=== PATIENT | male | born 1980 | race Caucasian/White ===

== ENCOUNTER 2019-07-30 18:35 | Emergency (ER) | payer MEDICARE, MEDICAID ==
[~2019-07-30] VITALS: Ht 185.4 cm; Wt 88.5 kg
[2019-07-30 19:02] VITALS: BP 155/88
--- NOTE | 2019-07-30 19:02 | NUR ---
ARRIVAL PATIENT PRESENTS WITH COMPLAINTS OF LUQ ABDOMINAL PAIN THAT RADIATES TO BACK FOR THE PAST 8 DAYS. STATES THAT HE HAS BEEN TAKING TYLENOL #4 FOR PAIN AND IT IS NOT HELPING. PATIENT ALSO REPORTS N/V, CHILLS. DENIES URINARY SYMPTOMS. VSS. MARS MD NOTIFIED.
[2019-07-30] MEDS ORDERED: PHENERGAN 12.5 MG in NS 25ML 25 ML IV STA ×2 (19:28→20:24)
[2019-07-30] MEDS ORDERED: MORPHINE SULFATE IV STA ×2 (19:28→21:57)
[2019-07-30] MEDS ORDERED: NS 1000ML 1,000 ML IV ONE (19:30)
--- NOTE | 2019-07-30 19:34 | ER.PDOC ---
General Chief Complaint: Abdomen Pain Stated Complaint: L UPPER SIDE & BACK PAIN Time seen by MD: 19:15 Source: patient Exam Limitations: no limitations History of Present Illness Initial Comments Pt c/o LUQ abd pain x 4 days. + N/V. Radiates to L flank and back. No previous history. Timing/Duration: other Severity/Quality: severe Radiation: LUQ, flank, back Associated Symptoms: nausea/vomiting Exacerbated by: nothing Relieved By: nothing Allergies: Coded Allergies: ibuprofen (Unverified Allergy, Unknown, SEVERE ABD CRAMPS, DIARRHEA, ANAL LEAKAGE, 06/13/18) risperidone (Unverified Allergy, Unknown, BLURRED VISION, 06/13/18) Vital Signs First Vital Signs Date Time Temp Pulse Resp B/P (MAP) Pulse Ox O2 Delivery O2 Flow Rate FiO2 07/30/19 19:02 97.0 97 18 98 Room Air 07/30/19 19:02 155/88 (110) Last Vital Signs Date Time Temp Pulse Resp B/P (MAP) Pulse Ox O2 Delivery O2 Flow Rate FiO2 07/30/19 19:02 97.0 97 18 07/30/19 19:02 155/88 (110) 98 Room Air Past Medical History Medical History: asthma, hypertension Surgical History: other LMP (females 10-50): N/A Not applicalbe Social History Smoking: greater than 1 pack/day Alcohol Use: none Drug Use: none Constitutional: no symptoms reported EENTM: no symptoms reported Respiratory: no symptoms reported Cardiovascular: no symptoms reported Gastrointestinal: abdominal pain, nausea, vomiting Genitourinary: no symptoms reported Musculoskeletal: no symptoms reported Skin: no symptoms reported Psychiatric/Neurological: no symptoms reported Endocrine: no symptoms reported Physical Exam General Appearance: WD/WN, Moderate Distress HEENT: PERRL/EOMI, Normal ENT Inspection, TMs Normal, Pharynx Normal Neck: Non-Tender, Full Range of Motion, Supple, Normal Inspection Respiratory: chest non-tender, lungs clear, normal breath sounds, no respiratory distress, no accessory muscle use Cardiovascular: Normal Peripheral Pulses, Regular Rate, Rhythm, No Edema, No Gallop, No JVD, No Murmur Gastrointestinal: Normal Bowel Sounds, Non Tender, Soft, Guarding, Tenderness (LUQ) Back: Normal Inspection, No CVA Tenderness, No Vertebral Tenderness Extremities: Normal Range of Motion, Non-Tender, Normal Inspection, No Pedal Edema, No Calf Tenderness, Normal Capillary Refill, Pelvis Stable Neurologic/Psychiatric: retail leader II-XII NML as Tested, No Motor/Sensory Deficits, Alert, Normal Mood/Affect, Oriented x 3 Skin: Normal Color, Warm/Dry Lymphatic: No Adenopathy Results/Orders Results/Orders Orders - NEWTON CREWS MD Cbc With Auto Diff (07/30/19 19:28) Comprehensive Metabolic Panel (07/30/19:28) Amylase (07/30/19:28) Lipase (07/30/19:28) Helicobacter Pylori (07/30/19:28) Saline Lock (07/30/19:28) Morphine Sulfate (Morphine Sulfate) (07/30/19 19:28) Promethazine Hcl (Phenergan) (07/30/19 19:28) 0.9 % Sodium Chloride (Ns 1000ml) (07/30/19 19:30) Promethazine Hcl (Phenergan) (07/30/19 19:53) 0.9 % Sodium Chloride (Ns 100ml) (07/30/19 19:54) Promethazine Hcl (Phenergan) (07/30/19 20:24) Promethazine Hcl (Phenergan) (07/30/19 20:30) 0.9 % Sodium Chloride (Ns 100ml) (07/30/19 20:30) Mag Hydrox/Aluminum Hyd/Simeth (Mylanta) (07/30/19 21:29) Lidocaine Hcl (Lidocaine Viscous) (07/30/19 21:29) Xr Chest 1v (07/30/19 21:57) Morphine Sulfate (Morphine Sulfate) (07/30/19 21:57) Sucralfate (Carafate) (07/30/19 21:57) Vital Signs Date Time Temp Pulse Resp B/P (MAP) Pulse Ox O2 Delivery O2 Flow Rate FiO2 07/30/19 19:02 97.0 97 18 07/30/19 19:02 97.0 97 18 155/88 (110) 98 Room Air 07/30/19 19:02 97.0 97 18 98 Room Air Administered Medications Medications (Trade) Dose Ordered Sig/Jabier Route PRN Reason Start Time Stop Time Status Last Admin Dose Admin Lidocaine HCl (Lidocaine Viscous) 10 ml STAT STAT MM 07/30/19 21:29 07/30/19 21:30 UNV 07/30/19 21:43 10 ML Morphine Sulfate (Morphine Sulfate) 4 mg OT STAT IV 07/30/19 19:28 07/30/19 19:29 UNV 07/30/19 19:45 4 MG Morphine Sulfate (Morphine Sulfate) 4 mg OT STAT IV 07/30/19 21:57 07/30/19 21:58 UNV 07/30/19 22:25 4 MG Sodium Chloride 1,000 ml @ 0 mls/hr Q0M ONCE IV 07/30/19 19:30 07/30/19 19:31 UNV 07/30/19 19:45 1,000 MLS/HR Sucralfate (Carafate) 1 gm STAT STAT PO 07/30/19 21:57 07/30/19 21:58 UNV 07/30/19 22:41 1 GM Laboratory Tests Test 07/30/19 19:50 White Blood Count 9.5 10^3/uL (4.5-11.0) Red Blood Count 5.03 10^6/uL (4.50-5.90) Hemoglobin 15.5 g/dL (13.9-16.3) Hematocrit 45.4 % (37.0-53.0) Mean Corpuscular Volume 90.3 fL (78-100) Mean Corpuscular Hemoglobin 30.8 pg (26-34) Mean Corpuscular Hemoglobin Concent 34.1 g/dL (33-37) Red Cell Distribution Width 13.0 % (11.5-14.5) Platelet Count 336 10^3/uL (150-400) Mean Platelet Volume 9.6 fL (7.8-11.0) Neutrophils (%) (Auto) 53.9 % (41.0-85.0) Lymphocytes (%) (Auto) 35.2 % (24.0-44.0) Monocytes (%) (Auto) 8.3 % (5.0-12.0) Neutrophils # (Auto) 5.1 10^3/uL (1.8-7.7) Lymphocytes # (Auto) 3.4 10^3/uL (1.0-4.8) Monocytes # (Auto) 0.8 10^3/uL (0.3-0.8) Absolute Immature Granulocyte (auto 0.02 10^3 u/L (0-2) Immature Granulocytes % 0.20 % (0.00-0.50) Eosinophils % 2.0 % (0.0-5.0) Basophils % 0.4 % (0.0-0.2) H Basophils # 0.0 10^3/uL (0.0-0.1) Eosinophil Count 0.2 10^3/uL (0.0-0.2) Sodium Level 144 mmol/L (132-145) Potassium Level 3.5 mmol/L (3.6-5.2) L Chloride Level 106.0 mmol/L (96-109) Carbon Dioxide Level 27.0 mmol/L (20.0-32) Anion Gap 14.5 Blood Urea Nitrogen 13 mg/dL (7-18) Creatinine 1.02 mg/dL (0.59-1.40) Estimated GFR () 99.4 (>/=60) BUN/Creatinine Ratio 12.0 Glucose Level 98 mg/dL (70-110) Calcium Level 8.8 mg/dL (8.4-10.5) Total Bilirubin 0.2 mg/dL (0.2-1.0) Aspartate Amino Transferase (AST) 18 U/L (0-35) Alanine Aminotransferase (ALT) 27 U/L (12-78) Alkaline Phosphatase 113 U/L (50-136) Total Protein 6.6 g/dL (6.4-8.2) Albumin 3.7 g/dL (3.4-5.0) Globulin 2.9 Amylase Level 27 U/L (25-115) Lipase 80 U/L (114-286) L Helicobacter pylori Screen POSITIVE (NEGATIVE) Course Sepsis Screening Results: Posi: POSITIVE SEPSIS RISK Duration or Total Time Spent w: 20 M Vitals & review Data Vital Sign - Last 24 Hours 07/30/19 07/30/19 07/30/19 19:02 19:02 19:02 Temp 97.0 97.0 97.0 Pulse 97 97 97 Resp 18 18 18 B/P (MAP) 155/88 (110) Pulse Ox 98 98 O2 Delivery Room Air Room Air Laboratory Tests Test 07/30/19 19:50 White Blood Count 9.5 10^3/uL Red Blood Count 5.03 10^6/uL Hemoglobin 15.5 g/dL Hematocrit 45.4 % Mean Corpuscular Volume 90.3 fL Mean Corpuscular Hemoglobin 30.8 pg Mean Corpuscular Hemoglobin Concent 34.1 g/dL Red Cell Distribution Width 13.0 % Platelet Count 336 10^3/uL Mean Platelet Volume 9.6 fL Neutrophils (%) (Auto) 53.9 % Lymphocytes (%) (Auto) 35.2 % Monocytes (%) (Auto) 8.3 % Neutrophils # (Auto) 5.1 10^3/uL Lymphocytes # (Auto) 3.4 10^3/uL Monocytes # (Auto) 0.8 10^3/uL Absolute Immature Granulocyte (auto 0.02 10^3 u/L Immature Granulocytes % 0.20 % Eosinophils % 2.0 % Basophils % 0.4 % Basophils # 0.0 10^3/uL Eosinophil Count 0.2 10^3/uL Sodium Level 144 mmol/L Potassium Level 3.5 mmol/L Chloride Level 106.0 mmol/L Carbon Dioxide Level 27.0 mmol/L Anion Gap 14.5 Blood Urea Nitrogen 13 mg/dL Creatinine 1.02 mg/dL Estimated GFR () 99.4 BUN/Creatinine Ratio 12.0 Glucose Level 98 mg/dL Calcium Level 8.8 mg/dL Total Bilirubin 0.2 mg/dL Aspartate Amino Transf (AST/SGOT) 18 U/L Alanine Aminotransferase (ALT/SGPT) 27 U/L Alkaline Phosphatase 113 U/L Total Protein 6.6 g/dL Albumin 3.7 g/dL Globulin 2.9 Amylase Level 27 U/L Lipase 80 U/L Helicobacter pylori Screen POSITIVE Current Medications Medications (Trade) Dose Ordered Sig/Jabier PRN Reason Start Time Stop Time Status Last Admin Lidocaine HCl (Lidocaine Viscous) 10 ml STAT STAT 07/30/19 21:29 07/30/19 21:30 UNV 07/30/19 21:43 Morphine Sulfate (Morphine Sulfate) 4 mg OT STAT 07/30/19 19:28 07/30/19 19:29 UNV 07/30/19 19:45 Morphine Sulfate (Morphine Sulfate) 4 mg OT STAT 07/30/19 21:57 07/30/19 21:58 UNV 07/30/19 22:25 Promethazine HCl 12.5 mg/Sodium Chloride 25.5 ml @ 150 mls/hr OT STAT 07/30/19 19:28 07/30/19 19:38 UNV Promethazine HCl 12.5 mg/Sodium Chloride 25.5 ml @ 150 mls/hr OT STAT 07/30/19 20:24 07/30/19 20:34 UNV Sucralfate (Carafate) 1 gm STAT STAT 07/30/19 21:57 07/30/19 21:58 UNV 07/30/19 22:41 Sepsis Infection Criteria Pres: None O2 Sat by Pulse Oximetry: 98 Departure Time of Disposition: 22:53 Disposition: 01 HOME, SELF-CARE Impression: Primary Impression: Peptic ulcer Condition: Stable Referrals: STEPHANIE ZURITA [facility] OF MAINTENANCE (PCP) PRIMARY CARE PROVIDER Additional Instructions: Rx Prevpak, Phenergan. Follow up with PCP for referral to hospitality ambassador. Duration or Time Spent with Pa: 20 NEWTON CREWS MD Jul 30, 2019 19:34
[2019-07-30] MEDS ORDERED: NS 1000ML 1,000 ML ONE (19:35)
[2019-07-30] MEDS ORDERED: MORPHINE SULFATE ONE ×2 (19:35→22:20)
[2019-07-30 19:52] LABS: BASOPHIL % 0.4 % (0.0-0.2); EOSINOPHIL # 0.2 10^3/uL (0.0-0.2); HEMOGLOBIN 15.5 g/dL (13.9-16.3); LYMPHOCYTES # 3.4 10^3/uL (1.0-4.8); LYMPHOCYTES % 35.2 % (24.0-44.0); MEAN CELL HGB 30.8 pg (26-34); MEAN CELL HGB CONCENTRATION 34.1 g/dL (33-37); MEAN CORP VOLUME 90.3 fL (78-100); MEAN PLATELET VOLUME 9.6 fL (7.8-11.0); MONOCYTES # 0.8 10^3/uL (0.3-0.8); MONOCYTES % 8.3 % (5.0-12.0); NEUTROPHIL # 5.1 10^3/uL (1.8-7.7); NEUTROPHILS % 53.9 % (41.0-85.0); WHITE BLOOD CELL 9.5 10^3/uL (4.5-11.0)
[2019-07-30] MEDS ORDERED: PHENERGAN ONE ×2 (19:53→20:30)
[2019-07-30] MEDS ORDERED: NS 100ML 100 ML IV ONE ×2 (19:54→20:30)
--- NOTE | 2019-07-30 19:56 | NUR ---
PHENERGAN PHENERGAN 12.5MG MIXED WITH 100ML NS AND ADMINISTERED IV PER ORDER OF MD MARS. MEDICATION WILL NOT CROSS OVER IN DEC.
[2019-07-30 20:05] VITALS: BP 128/76
[2019-07-30 20:06] LABS: CALCIUM 8.8 mg/dL (8.4-10.5)
--- NOTE | 2019-07-30 20:35 | NUR ---
PHENERGAN PHENERGAN 12.5MG MIXED WITH 100ML NS AND ADMINISTERED IV PER ORDER OF MD MARS. MEDICATION WILL NOT CROSS OVER IN DEC.
[2019-07-30 21:05] VITALS: BP 125/95
[2019-07-30] MEDS ORDERED: LIDOCAINE VISCOUS MM STA (21:29)
[2019-07-30] MEDS ORDERED: MYLANTA PO STA (21:29)
[2019-07-30] MEDS ORDERED: LIDOCAINE VISCOUS ONE (21:38)
[2019-07-30] MEDS ORDERED: MYLANTA ONE (21:39)
[2019-07-30] MEDS ORDERED: CARAFATE PO STA (21:57)
[2019-07-30 22:05] VITALS: BP 125/78
--- NOTE | 2019-07-30 22:43 | DIREP ---
PROCEDURE:CHEST 1 VIEW COMPARISON:[facility], CR, XRAY CHEST SINGLE VW, 06/18/2019, 10:26 AM. INDICATIONS:Abd/chest pain, eval for free air FINDINGS: LUNGS/PLEURA:No significant pulmonary parenchymal abnormalities. No effusions. The lungs are clear. Assuming that the chest x-ray was performed upright, there is no evidence for free air below the diaphragm. There is mild prominence of the interstitium in the lungs, but unchanged since the last study. No pneumonia, heart failure or effusions are seen. VASCULATURE:Normal. Unremarkable pulmonary vasculature. CARDIAC:Normal. No cardiac silhouette abnormality or cardiomegaly. MEDIASTINUM:Normal. No visible mass or adenopathy. BONES:Normal. No fracture or visible bony lesion. Bifid spinous process of T1. OTHER:Negative. CONCLUSION:Assuming that the chest x-ray was performed upright, there is no evidence for free air below the diaphragm. A follow-up supine and upright abdomen view is still recommended. No active disease in the lungs. Dictated by: Manuel Leos MD on 07/30/2019 at 10:40 PM
[2019-07-30 22:57] VITALS: BP 121/75
--- NOTE | 2019-07-30 23:03 | NUR ---
IV DC'D TIP INTACT, NO BLEEDING
--- NOTE | 2019-07-30 23:04 | NUR ---
IV sites to right AC and right forearm DC'd. Pressure applied.
[2019-07-31] MEDS ORDERED: CARAFATE ONE (08:33)
== END 2019-07-30 23:06 | disposition home or self-care (01) ==
LOC: ER 18:35
DX: K27.9 Peptic ulcer, site unspecified, unspecified as acute or chronic, without hemorrhage or perforation (principal); R11.2 Nausea with vomiting, unspecified; F17.210 Nicotine dependence, cigarettes, uncomplicated; I10 Essential (primary) hypertension; J45.909 Unspecified asthma, uncomplicated; Z79.899 Other long term (current) drug therapy; Z88.6 Allergy status to analgesic agent; Z88.8 Allergy status to other drugs, medicaments and biological substances
CPT/HCPCS: 36415; 71045; 80053; 82150; 83690; 85025; 86677; 96361; 96374; 96376; 99285; J2270 ×2; J2550 ×2; J3490; J7030; J7050 ×2

== ENCOUNTER 2019-09-05 10:14 | Emergency (ER) | payer MEDICARE ==
[~2019-09-05] VITALS: Ht 182.9 cm; Wt 93.4 kg
[2019-09-05 10:29] VITALS: BP 138/89
[2019-09-05] MEDS ORDERED: MYLANTA PO STA (11:09)
[2019-09-05] MEDS ORDERED: LIDOCAINE VISCOUS MM STA (11:09)
[2019-09-05] MEDS ORDERED: LIDOCAINE VISCOUS ONE (11:14)
[2019-09-05] MEDS ORDERED: MYLANTA ONE (11:14)
--- NOTE | 2019-09-05 11:16 | ER.PDOC ---
General Chief Complaint: Abdomen Pain Stated Complaint: ABD PAIN Time seen by MD: 10:53 Source: patient, family Exam Limitations: no limitations History of Present Illness Initial Comments Pt reports epigastric/LUQ pain for about 1 week, somewhat worse after eating. Had similar symptoms about 3 weeks ago, was seen in the ER and diagnosed with H pylori gastritis. Took abx and other meds, and symptoms stopped. Came back about 1 week after finishing meds. Has been taking NSAIDS at home for pain. Severity/Quality: moderate Radiation: LUQ, epigastric Exacerbated by: food Relieved By: other (diminished ) Allergies: Coded Allergies: ibuprofen (Unverified Allergy, Unknown, SEVERE ABD CRAMPS, DIARRHEA, ANAL LEAKAGE, 06/13/18) risperidone (Unverified Allergy, Unknown, BLURRED VISION, 06/13/18) Vital Signs First Vital Signs Date Time Temp Pulse Resp B/P (MAP) Pulse Ox O2 Delivery O2 Flow Rate FiO2 09/05/19 10:29 98.1 91 17 96 Room Air 09/05/19 10:29 138/89 (105) Last Vital Signs Date Time Temp Pulse Resp B/P (MAP) Pulse Ox O2 Delivery O2 Flow Rate FiO2 09/05/19 11:38 81 17 125/66 (85) 95 Room Air 09/05/19 10:29 98.1 Past Medical History Medical History: asthma Surgical History: other Family History Significant Family History: no pertinent family hx Social History Smoking: greater than 1 pack/day Alcohol Use: none Drug Use: none Constitutional: no symptoms reported EENTM: no symptoms reported Respiratory: no symptoms reported Gastrointestinal: see HPI; denies abdomen distended; abdominal pain; denies blood streaked bowels, denies diarrhea, denies difficulty swallowing Genitourinary: no symptoms reported Musculoskeletal: no symptoms reported Skin: no symptoms reported Psychiatric/Neurological: no symptoms reported Hematologic/Lymphatic: no symptoms reported All Other Systems: Reviewed and Negative Physical Exam General Appearance: No Apparent Distress HEENT: PERRL/EOMI, Normal ENT Inspection Neck: Non-Tender Respiratory: chest non-tender Cardiovascular: Normal Peripheral Pulses, Regular Rate, Rhythm Gastrointestinal: Normal Bowel Sounds, No Organomegaly, No Pulsatile Mass, Tenderness (mild, LUQ and epigastric region. No rebound/guarding) Back: Normal Inspection, No CVA Tenderness Skin: Normal Color, Warm/Dry Results/Orders Results/Orders Orders - LEENA HERNANDEZ DO Cbc With Auto Diff (09/05/19 11:09) Comprehensive Metabolic Panel (09/05/19 11:09) Lipase (09/05/19 11:09) Mag Hydrox/Aluminum Hyd/Simeth (Mylanta) (09/05/19 11:09) Lidocaine Hcl (Lidocaine Viscous) (09/05/19 11:09) Lidocaine Hcl (Lidocaine Viscous) (09/05/19 11:14) Mag Hydrox/Aluminum Hyd/Simeth (Mylanta) (09/05/19 11:14) Ct Abd/Pel With Iv Contrast (09/05/19 12:06) Vital Signs Date Time Temp Pulse Resp B/P (MAP) Pulse Ox O2 Delivery O2 Flow Rate FiO2 09/05/19 11:38 81 17 125/66 (85) 95 Room Air 09/05/19 10:29 98.1 91 17 09/05/19 10:29 98.1 91 17 138/89 (105) 96 Room Air 09/05/19 10:29 98.1 91 17 96 Room Air Administered Medications Medications (Trade) Dose Ordered Sig/Jabier Route PRN Reason Start Time Stop Time Status Last Admin Dose Admin Lidocaine HCl (Lidocaine Viscous) 10 ml STAT STAT MM 09/05/19 11:09 09/05/19 11:12 DC 09/05/19 11:20 10 ML Laboratory Tests Test 09/05/19 11:20 White Blood Count 9.2 10^3/uL (4.5-11.0) Red Blood Count 5.34 10^6/uL (4.50-5.90) Hemoglobin 16.2 g/dL (13.9-16.3) Hematocrit 47.4 % (37.0-53.0) Mean Corpuscular Volume 88.8 fL (78-100) Mean Corpuscular Hemoglobin 30.3 pg (26-34) Mean Corpuscular Hemoglobin Concent 34.2 g/dL (33-37) Red Cell Distribution Width 13.3 % (11.5-14.5) Platelet Count 320 10^3/uL (150-400) Mean Platelet Volume 9.7 fL (7.8-11.0) Neutrophils (%) (Auto) 56.4 % (41.0-85.0) Lymphocytes (%) (Auto) 33.2 % (24.0-44.0) Monocytes (%) (Auto) 7.2 % (5.0-12.0) Neutrophils # (Auto) 5.2 10^3/uL (1.8-7.7) Lymphocytes # (Auto) 3.0 10^3/uL (1.0-4.8) Monocytes # (Auto) 0.7 10^3/uL (0.3-0.8) Absolute Immature Granulocyte (auto 0.02 10^3 u/L (0-2) Immature Granulocytes % 0.20 % (0.00-0.50) Eosinophils % 2.2 % (0.0-5.0) Basophils % 0.8 % (0.0-0.2) H Basophils # 0.1 10^3/uL (0.0-0.1) Eosinophil Count 0.2 10^3/uL (0.0-0.2) Sodium Level 140 mmol/L (132-145) Potassium Level 3.9 mmol/L (3.6-5.2) Chloride Level 104.0 mmol/L (96-109) Carbon Dioxide Level 27.7 mmol/L (20.0-32) Anion Gap 12.2 Blood Urea Nitrogen 11 mg/dL (7-18) Creatinine 1.01 mg/dL (0.59-1.40) Estimated GFR () 100.0 (>/=60) BUN/Creatinine Ratio 10.0 Glucose Level 93 mg/dL (70-110) Calcium Level 9.4 mg/dL (8.4-10.5) Total Bilirubin 0.3 mg/dL (0.2-1.0) Aspartate Amino Transferase (AST) 22 U/L (0-35) Alanine Aminotransferase (ALT) 36 U/L (12-78) Alkaline Phosphatase 126 U/L (50-136) Total Protein 7.0 g/dL (6.4-8.2) Albumin 3.8 g/dL (3.4-5.0) Globulin 3.2 Lipase 136 U/L (114-286) Progress Progress Labs unremarkable, pain better after GI cocktail but wore off. Needs d/c home w ith PMD referral to GI, start Pepcid daily PROCEDURE:CT ABDOMEN/PELVIS W/ CONTRAST COMPARISON:None. INDICATIONS:upper abd pain TECHNIQUE:Axial images were created through the abdomen and pelvis with non-ionic intravenous contrast material. No oral contrast was administered. Sagittal and coronal reconstructions were performed from source images. FINDINGS: LUNG BASES:Normal. No visible pulmonary or pleural disease. LIVER:Normal. No significant liver lesions are identified. BILIARY:Normal. No visible dilatation or calcification. PANCREAS:Normal. No lesion, fluid collection, ductal dilatation, or atrophy. SPLEEN:Normal. No enlargement or focal lesion. ADRENALS:Normal. No mass or enlargement. URINARY TRACT:Normal. No focal lesions or hydronephrosis. AORTA/VASCULAR:Normal. No aneurysm. RETROPERITONEUM:Normal. No mass or adenopathy. BOWEL/MESENTERY:Normal. There is no intestinal obstruction, free fluid, free air or mesenteric inflammatory changes. ABDOMINAL WALL:Normal. No mass or hernia. PELVIC ORGANS:Normal. No visible mass. Pelvic organs appropriate for patient age. BONES:Normal for age. No bony lesion or acute fracture. OTHER:Negative. CONCLUSION: 1. Normal CT scan of the abdomen and pelvis. The appendix is normal. Dictated by: Galindo Kimble M.D. on 09/05/2019 at 01:03 PM Course Sepsis Screening Results: Posi: POSITIVE SEPSIS RISK Duration or Total Time Spent w: 20 Vitals & review Data Vital Sign - Last 24 Hours 09/05/19 09/05/19 09/05/19 09/05/19 10:29 10:29 10:29 11:38 Temp 98.1 98.1 98.1 Pulse 91 91 91 81 Resp 17 17 17 17 B/P (MAP) 138/89 (105) 125/66 (85) Pulse Ox 96 96 95 O2 Delivery Room Air Room Air Room Air Laboratory Tests Test 09/05/19 11:20 White Blood Count 9.2 10^3/uL Red Blood Count 5.34 10^6/uL Hemoglobin 16.2 g/dL Hematocrit 47.4 % Mean Corpuscular Volume 88.8 fL Mean Corpuscular Hemoglobin 30.3 pg Mean Corpuscular Hemoglobin Concent 34.2 g/dL Red Cell Distribution Width 13.3 % Platelet Count 320 10^3/uL Mean Platelet Volume 9.7 fL Neutrophils (%) (Auto) 56.4 % Lymphocytes (%) (Auto) 33.2 % Monocytes (%) (Auto) 7.2 % Neutrophils # (Auto) 5.2 10^3/uL Lymphocytes # (Auto) 3.0 10^3/uL Monocytes # (Auto) 0.7 10^3/uL Absolute Immature Granulocyte (auto 0.02 10^3 u/L Immature Granulocytes % 0.20 % Eosinophils % 2.2 % Basophils % 0.8 % Basophils # 0.1 10^3/uL Eosinophil Count 0.2 10^3/uL Sodium Level 140 mmol/L Potassium Level 3.9 mmol/L Chloride Level 104.0 mmol/L Carbon Dioxide Level 27.7 mmol/L Anion Gap 12.2 Blood Urea Nitrogen 11 mg/dL Creatinine 1.01 mg/dL Estimated GFR () 100.0 BUN/Creatinine Ratio 10.0 Glucose Level 93 mg/dL Calcium Level 9.4 mg/dL Total Bilirubin 0.3 mg/dL Aspartate Amino Transf (AST/SGOT) 22 U/L Alanine Aminotransferase (ALT/SGPT) 36 U/L Alkaline Phosphatase 126 U/L Total Protein 7.0 g/dL Albumin 3.8 g/dL Globulin 3.2 Lipase 136 U/L Sepsis Infection Criteria Pres: None O2 Sat by Pulse Oximetry: 96 Departure Time of Disposition: 12:03 Disposition: 01 HOME, SELF-CARE Impression: Primary Impression: Gastritis Condition: Stable Referrals: JUDY NI DO (PCP) PRIMARY CARE PROVIDER Duration or Time Spent with Pa: 25 Problem Qualifiers Primary Impression: Gastritis Gastritis type: unspecified gastritis Chronicity: acute Gastritis bleeding: without bleeding Qualified Codes: K29.00 - Acute gastritis without bleeding LEENA HERNANDEZ DO Sep 05, 2019 11:16
[2019-09-05 11:33] LABS: BASOPHIL # 0.1 10^3/uL (0.0-0.1); BASOPHIL % 0.8 % (0.0-0.2); EOSINOPHIL # 0.2 10^3/uL (0.0-0.2); EOSINOPHIL % 2.2 % (0.0-5.0); HEMOGLOBIN 16.2 g/dL (13.9-16.3); LYMPHOCYTES % 33.2 % (24.0-44.0); MEAN CELL HGB 30.3 pg (26-34); MEAN CELL HGB CONCENTRATION 34.2 g/dL (33-37); MEAN CORP VOLUME 88.8 fL (78-100); MEAN PLATELET VOLUME 9.7 fL (7.8-11.0); MONOCYTES # 0.7 10^3/uL (0.3-0.8); MONOCYTES % 7.2 % (5.0-12.0); NEUTROPHIL # 5.2 10^3/uL (1.8-7.7); NEUTROPHILS % 56.4 % (41.0-85.0); RED CELL DISTRIBUTION WIDTH 13.3 % (11.5-14.5); WHITE BLOOD CELL 9.2 10^3/uL (4.5-11.0)
[2019-09-05 11:38] VITALS: BP 125/66
[2019-09-05 11:49] LABS: CALCIUM 9.4 mg/dL (8.4-10.5); CARBON DIOXIDE 27.7 mmol/L (20.0-32)
--- NOTE | 2019-09-05 12:23 | NUR ---
UPDATE PATIENT STATES MALOX AND LIDOCAINE BROUGHT PAIN TO A 3, BUT AT THIS TIME STATES AFFECTS ARE WEARING OFF. EDP NOTIFIED
--- NOTE | 2019-09-05 13:08 | DIREP ---
PROCEDURE:CT ABDOMEN/PELVIS W/ CONTRAST COMPARISON:None. INDICATIONS:upper abd pain TECHNIQUE:Axial images were created through the abdomen and pelvis with non-ionic intravenous contrast material. No oral contrast was administered. Sagittal and coronal reconstructions were performed from source images. FINDINGS: LUNG BASES:Normal. No visible pulmonary or pleural disease. LIVER:Normal. No significant liver lesions are identified. BILIARY:Normal. No visible dilatation or calcification. PANCREAS:Normal. No lesion, fluid collection, ductal dilatation, or atrophy. SPLEEN:Normal. No enlargement or focal lesion. ADRENALS:Normal. No mass or enlargement. URINARY TRACT:Normal. No focal lesions or hydronephrosis. AORTA/VASCULAR:Normal. No aneurysm. RETROPERITONEUM:Normal. No mass or adenopathy. BOWEL/MESENTERY:Normal. There is no intestinal obstruction, free fluid, free air or mesenteric inflammatory changes. ABDOMINAL WALL:Normal. No mass or hernia. PELVIC ORGANS:Normal. No visible mass. Pelvic organs appropriate for patient age. BONES:Normal for age. No bony lesion or acute fracture. OTHER:Negative. CONCLUSION: 1. Normal CT scan of the abdomen and pelvis. The appendix is normal. Dictated by: Galindo Kimble M.D. on 09/05/2019 at 01:03 PM
[2019-09-05 13:20] VITALS: BP 135/91
== END 2019-09-05 13:36 | disposition home or self-care (01) ==
LOC: ER 10:14
DX: K29.00 Acute gastritis without bleeding (principal); J45.909 Unspecified asthma, uncomplicated; F17.210 Nicotine dependence, cigarettes, uncomplicated; Z88.6 Allergy status to analgesic agent; Z88.8 Allergy status to other drugs, medicaments and biological substances
CPT/HCPCS: 36415; 74177; 80053; 83690; 85025; 99285; J3490; Q9965

== ENCOUNTER 2020-10-21 14:05 | Emergency (ER) | payer MEDICARE, MEDICAID ==
[~2020-10-21] VITALS: Ht 182.9 cm; Wt 95.3 kg
[2020-10-21 14:50] VITALS: BP 129/76
[2020-10-21] MEDS ORDERED: ADACEL VIAL IM ONE ×2 (15:00→15:14)
[2020-10-21 15:11] VITALS: BP 129/76
--- NOTE | 2020-10-21 15:20 | ER.PDOC ---
General Chief Complaint: Extremities Stated Complaint: LAC LEFT THUMB Time seen by MD: 15:15 Source: patient Exam Limitations: no limitations History of Present Illness Initial Comments Patient c/o lac to left thumb: he was using table saw with gloves on his hands and accidentally caught left thumb in the blade. He is right hand dominant. Occurred: just prior to arrival Where: home Severity: moderate Location: other (left thumb) Method of Injury: incised (table saw) Allergies: Coded Allergies: ibuprofen (Unverified Allergy, Unknown, SEVERE ABD CRAMPS, DIARRHEA, ANAL LEAKAGE, 06/13/18) risperidone (Unverified Allergy, Unknown, BLURRED VISION, 06/13/18) Past Medical History Medical History: asthma Surgical History: no surgical history Family History Significant Family History: no pertinent family hx Social History Smoking: cigarettes Alcohol Use: occassionally Drug Use: none Review of Systems Constitutional: denies no symptoms reported, denies see HPI, denies chills, denies diaphoresis, denies fever, denies malaise, denies weakness, denies other Eyes: denies no symptoms reported, denies see HPI, denies blindness, denies natalio rred vision, denies drainage, denies decreased acuity, denies foreign body sensation, denies inflammation, denies pain, denies photophobia, denies previous injury, denies shadows, denies tunnel vision, denies vision change, denies contact lenses, denies glasses, denies other Ears, Nose, Mouth, Throat: denies no symptoms reported, denies see HPI, denies ear pain, denies ear discharge, denies nose pain, denies nose discharge, denies epistaxis, denies mouth pain, denies mouth swelling, denies loose teeth, denies throat pain, denies throat swelling Respiratory: denies no symptoms reported, denies see HPI, denies cough, denies orthopnea, denies shortness of breath, denies stridor, denies wheezing, denies other Cardiovascular: denies no symptoms reported, denies see HPI, denies chest pain, denies edema, denies palpitations, denies syncope, denies other Gastrointestinal: denies no symptoms reported, denies see HPI, denies abdominal pain, denies constipation, denies diarrhea, denies nausea, denies vomiting, denies other Genitourinary: denies no symptoms reported, denies see HPI, denies discharge, denies dysuria, denies frequency, denies hematuria, denies pain, denies other Musculoskeletal: see HPI Skin: see HPI Psychiatric/Neurological: denies no symptoms reported, denies see HPI, denies anxiety, denies depressed, denies emotional problems, denies cognitive dysfunction, denies headache, denies numbness, denies petit mal seizures, denies tingling, denies tonic-clonic seizures, denies unable to move lower ext, denies unable to move upper ext, denies weakness, denies other All Other Systems: Reviewed and Negative Physical Exam General Appearance: Alert, No Apparent Distress Head: No Evidence of Injury Eye: PERRL, EOMI Neck: non-tender, painless ROM Cardiovascular/Respiratory: Regular Rate, Rhythm, Normal Breath Sounds, No Respiratory Distress Gastrointestinal: Normal Bowel Sounds, No Pulsatile Mass, Non Tender Extremities: Other (incision left thumb) NEURO/PSYCH: Alert, Oriented x3, Cooperative, Interactive, Mood/affect nml Srihdar Coma Score Best Eye Response: (4) Open Spontaneously Best Verbal Response: (5) Oriented Best Motor Response: (6) Obeys Commands ED LACERATION WOUND REPAIR # of Wounds/Lacerations Presen: 2 Wound Location & Length (Requi: two mangled lacs to distal phalanx left thumb Wound Length (cm): 4 Anesthesia type: digital block Anesthesia: 1% Lidocaine Wound's Depth, Shape: irregular (mangled) Irrigated w/ Saline (ccs): 30 Wound Debrided: minimal Wound Repaired With: sutures Suture Size/Type: 4:0, ethilon Suture Style: interupted Number of Sutures: 5 Layer Closure?: No Retention sutures placed: No Sterile Dressing Applied?: Yes Sling Applied?: No Results/Orders Results/Orders Orders - TERRY HARVEY DO Xr Finger Lt (10/21/20 14:45) Diph,Pertuss(Acell),Tet Vac/Pf (Adacel V (10/21/20 15:00) Diph,Pertuss(Acell),Tet Vac/Pf (Adacel V (10/21/20 15:14) Lidocaine Hcl (Lidocaine 1% Vial) (10/21/20 15:36) Vital Signs Date Time Temp Pulse Resp B/P (MAP) Pulse Ox O2 Delivery O2 Flow Rate FiO2 10/21/20 15:11 98.5 88 18 129/76 (93) 99 Room Air 10/21/20 14:50 98.5 88 18 10/21/20 14:50 98.5 95 18 99 Administered Medications Medications (Trade) Dose Ordered Sig/Jabier Route PRN Reason Start Time Stop Time Status Last Admin Dose Admin Diphtheria/ Tetanus/Acell Pertussis (Adacel Vial) 0.5 ml ONCE ONCE IM 10/21/20 15:00 10/21/20 15:01 DC 10/21/20 15:32 0.5 ML EKG/XRAY/CT/US XRAY Comments: no fx seen Consult/PCP Time Consult/PCP Called: 17:05 Consult/PCP: Dr. Dunaway's office Reason/Comments: will see in office 2:00 Sunday ER DEPART Departure Time of Disposition: 17:08 Impression: Primary Impression: Laceration of thumb, left Patient Instructions: Fingertip Laceration Referrals: JUDY NI DO (PCP) PRIMARY CARE PROVIDER ALAN DUNAWAY MD Additional Instructions: Keep wound clean and dry. Apply triple antibiotic ointment daily. Sutures out in 14 days. Return to ER if you develop any signs of infection. Off work 3 days. Follow up with Dr. Dunaway Sunday at 2:00. Alternate Tylenol and Motrin per package instructions every 4 hours as needed for pain. You may augment pain control with mild narcotic as prescribed. Take antibiotics as prescribed until all gone. Duration or Time Spent with Pa: 45 min Problem Qualifiers Primary Impression: Laceration of thumb, left Encounter type: initial encounter Damage to nail status: with damage Foreign body presence: without foreign body Qualified Codes: S61.112A - Laceration without foreign body of left thumb with damage to nail, initial encounter TERRY HARVEY DO Oct 21, 2020 15:20
--- NOTE | 2020-10-21 15:23 | DIREP ---
PROCEDURE:XRAY FINGER-LT COMPARISON:None. INDICATIONS:INJURY FINDINGS: BONES:Normal. JOINTS:Normal. SOFT TISSUES:Laceration of the distal thumb. No radiopaque foreign body. OTHER:No additional findings. CONCLUSION:Laceration of the distal thumb. No acute fracture, dislocation, or radiopaque foreign body. Dictated by: Pravin Sewell M.D. on 10/21/2020 at 03:21 PM
[2020-10-21] MEDS ORDERED: LIDOCAINE 1% VIAL ONE (15:36)
[2020-10-21 16:15] VITALS: BP 136/71
[2020-10-21] MEDS ORDERED: TRIPLE ANTIBIOTIC OINTMENT TP STA (17:06)
[2020-10-21] MEDS ORDERED: KEFLEX PO STA (17:06)
[2020-10-21] MEDS ORDERED: TRIPLE ANTIBIOTIC OINTMENT TP ONE (17:10)
[2020-10-21] MEDS ORDERED: KEFLEX PO ONE (17:11)
[2020-10-21 17:20] VITALS: BP 126/78
== END 2020-10-21 17:21 ==
LOC: ER 14:05
DX: S61.112A Laceration without foreign body of left thumb with damage to nail, initial encounter (principal); F17.210 Nicotine dependence, cigarettes, uncomplicated; Z88.6 Allergy status to analgesic agent; W22.8XXA Striking against or struck by other objects, initial encounter; Y93.89 Activity, other specified; Y92.098 Other place in other non-institutional residence as the place of occurrence of the external cause; Y99.8 Other external cause status
CPT/HCPCS: 12002; 73140; 90471; 90715; 99283; J2001

== ENCOUNTER 2021-01-07 12:42 | Emergency (ER) | payer MEDICARE, MEDICAID ==
[~2021-01-07] VITALS: Ht 185.4 cm; Wt 90.7 kg
[2021-01-07 12:50] VITALS: BP 152/102
--- NOTE | 2021-01-07 13:00 | NUR ---
STATUS PT SPOUSE CAME OUT TO DESK TO REPORT THAT PT HAS SCHIZOPHRENIA AND IS NOT TAKING HIS MEDS. STATES HE HEARS VOICES AND HAS GOTTEN WORSE THE PAST 2 DAYS. STATES HE HAS BEEN OFF MEDS FOR ALMOST 2 YEARS NOW. DENIES SUICIDAL OR HOMICIDAL THOUGHTS.
--- NOTE | 2021-01-07 13:17 | ER.PDOC ---
General Chief Complaint: General Complaint Stated Complaint: DIZZY/CONFUSION TRAVEL OUT OF US: No Time seen by MD: 13:14 Source: patient Exam Limitations: no limitations History of Present Illness Initial Comments Dizziness and hearing voices on and off for 3 years. Patient has schizophrenia but has been off medication for a while now. No suicidal or homicidal ideation. Severity: moderate Associated Symptoms: denies symptoms Allergies: Coded Allergies: ibuprofen (Unverified Allergy, Unknown, SEVERE ABD CRAMPS, DIARRHEA, ANAL LEAKAGE, 06/13/18) risperidone (Unverified Allergy, Unknown, BLURRED VISION, 06/13/18) Past Medical History Medical History: asthma, other (Schizophrenia) Surgical History: no surgical history Family History Significant Family History: no pertinent family hx Social History Alcohol Use: none Drug Use: none Review of Systems Constitutional: no symptoms reported EENTM: see HPI Respiratory: no symptoms reported Cardiovascular: no symptoms reported Gastrointestinal: no symptoms reported Psychiatric/Neurological: see HPI All Other Systems: Reviewed and Negative Physical Exam General Appearance: No Apparent Distress, WD/WN Neck: Non-Tender, Full Range of Motion, Supple, Normal Inspection Respiratory: chest non-tender, lungs clear, normal breath sounds, no respiratory distress, no accessory muscle use CVS: reg rate & rhythm, no murmur, no gallop, pulses nml, nml capillary refill Gastrointestinal: Normal Bowel Sounds, No Organomegaly, No Pulsatile Mass, Non Tender Back: Normal Inspection Extremities: Normal Range of Motion, Non-Tender, Normal Inspection 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, No Motor/Sensory Deficits, Other (auditory hallucinations, disorganized speech and marked delusions) Skin: Normal Color Lymphatic: No Adenopathy Results/Orders Results/Orders Orders - MARY ANN MALDONADO MD Cbc With Auto Diff (01/07/21 13:12) Comprehensive Metabolic Panel (01/07/21 13:12) Troponin I (01/07/21 13:12) Ekg-Routine (01/07/21 13:12) Ct Head Wo Contrast (01/07/21 13:12) Vital Signs Date Time Temp Pulse Resp B/P (MAP) Pulse Ox O2 Delivery O2 Flow Rate FiO2 01/07/21 12:50 98.1 88 18 01/07/21 12:50 98.1 88 18 152/102 (119) 97 Room Air 01/07/21 12:50 98.1 88 18 97 Laboratory Tests Test 01/07/21 13:17 White Blood Count 7.3 10^3/uL (4.5-11.0) Red Blood Count 4.98 10^6/uL (4.50-5.90) Hemoglobin 15.1 g/dL (13.9-16.3) Hematocrit 44.3 % (37.0-53.0) Mean Corpuscular Volume 89.0 fL (78-100) Mean Corpuscular Hemoglobin 30.3 pg (26-34) Mean Corpuscular Hemoglobin Concent 34.1 g/dL (33-36.5) Red Cell Distribution Width 12.7 % (11.5-14.5) Platelet Count 442 10^3/uL (150-400) H Mean Platelet Volume 9.4 fL (7.8-11.0) Neutrophils (%) (Auto) 55.8 % (41.0-85.0) Lymphocytes (%) (Auto) 36.6 % (24.0-44.0) Monocytes (%) (Auto) 6.2 % (5.0-12.0) Neutrophils # (Auto) 4.1 10^3/uL (1.8-7.7) Lymphocytes # (Auto) 2.66 10^3/uL1 (1.0-4.8) Monocytes # (Auto) 0.5 10^3/uL (0.3-0.8) Absolute Immature Granulocyte (auto 0.01 10^3 u/L (0-2) Absolute Eosinophils (auto) 0.0 10^3/uL (0.0-0.2) Immature Granulocytes % 0.10 % (0.00-0.50) Eosinophils % 0.6 % (0.0-5.0) Basophils % 0.7 % (0.0-0.2) H Basophils # 0.1 10^3/uL (0.0-0.1) Sodium Level 142 mmol/L (132-145) Potassium Level 3.7 mmol/L (3.6-5.2) Chloride Level 105.0 mmol/L (96-109) Carbon Dioxide Level 27.7 mmol/L (20.0-32) Anion Gap 13.0 Blood Urea Nitrogen 12 mg/dL (7-18) Creatinine 1.08 mg/dL (0.59-1.40) Estimated GFR () 92.1 (>/=60) Est GFR (CKD-EPI)(Non-Afr Nigerian) 76.1 (>/=60) BUN/Creatinine Ratio 11.0 Glucose Level 102 mg/dL (70-110) Calcium Level 9.0 mg/dL (8.4-10.5) Total Bilirubin 0.3 mg/dL (0.2-1.0) Aspartate Amino Transferase (AST) 15 U/L (0-35) Alanine Aminotransferase (ALT) 28 U/L (12-78) Alkaline Phosphatase 132 U/L (50-136) Troponin I < 0.02 ng/mL (0.00-0.05) Total Protein 7.2 g/dL (6.4-8.2) Albumin 4.1 g/dL (3.4-5.0) Globulin 3.1 Albumin/Globulin Ratio 1.322 EKG/XRAY/CT/US EKG: NSR, no ST T wave changes EKG Comments: HR 92, normal P axis CT Comments: No acute intracranial abnormality ER DEPART Departure Time of Disposition: 14:13 Disposition: 01 HOME, SELF-CARE Impression: Primary Impression: Schizophrenia Additional Impression: Dizziness Condition: Stable Referrals: PCP,UNKNOWN (PCP) PRIMARY CARE PROVIDER Additional Instructions: Follow-up with your PCP next week Establish and follow-up with a psychiatrist next week Return to ED if worsening or concerns Duration or Time Spent with Pa: 45 min Problem Qualifiers Primary Impression: Schizophrenia Schizophrenia type: unspecified Qualified Codes: F20.9 - Schizophrenia, unspecified MARY ANN MALDONADO MD Jan 07, 2021 13:17
[2021-01-07 13:21] LABS: BASOPHIL # 0.1 10^3/uL (0.0-0.1); BASOPHIL % 0.7 % (0.0-0.2); EOSINOPHIL % 0.6 % (0.0-5.0); LYMPHOCYTES # 2.66 10^3/uL1 (1.0-4.8); LYMPHOCYTES % 36.6 % (24.0-44.0); MEAN CORP HGB 30.3 pg (26-34); MONOCYTES # 0.5 10^3/uL (0.3-0.8); MONOCYTES % 6.2 % (5.0-12.0); NEUTROPHIL # 4.1 10^3/uL (1.8-7.7); NEUTROPHILS % 55.8 % (41.0-85.0); PLATELET COUNT 442 10^3/uL (150-400); RED CELL DISTRIBUTION WIDTH 12.7 % (11.5-14.5)
--- NOTE | 2021-01-07 13:23 | PCM.EKG ---
[facility] Test Date: 2021-01-07 Test Time: 13:22:03 Pat Name: YISSEL BARRETT Department: Room: Gender: M [employer] H[employer]: JACOB : 1980 Requested By: MARY ANN MALDONADO Order Number: [id number] Reading MD: Mary Ann MALDONADO Measurements Intervals [place] Rate: 92 P: 70 MO: 149 QRS: 68 QRSD: 93 T: 41 QT: 356 QTc: 441 Interpretive Statements Sinus rhythm Abnormal R-wave progression, early transition Baseline wander in lead(s) II,III,aVF,V6 Compared to ECG 06/18/2019 10:07:52 Sinus arrhythmia no longer present Electronically Signed On 01-08-2021 19:18:15 CDT by Mary Ann MALDONADO Please click the below link to view image of tracing.
[2021-01-07 13:35] VITALS: BP 147/99
[2021-01-07 13:43] LABS: ALANINE AMINOTRANSFERASE(ML) 28 U/L (12-78); ALKALINE PHOSPHATASE 132 U/L (50-136); ASPARTATE AMINO TRANSFERASE 15 U/L (0-35); CARBON DIOXIDE 27.7 mmol/L (20.0-32); GLUCOSE 102 mg/dL (70-110)
--- NOTE | 2021-01-07 13:56 | DIREP ---
PROCEDURE:CT HEAD OR BRAIN W/O CONTRAST COMPARISON:[facility], CT, CT HEAD BRAIN W/O CONTRAST, 11/15/2017, 08:19 PM. INDICATIONS:Dizziness TECHNIQUE:CT images were created without intravenous contrast. FINDINGS: VENTRICLES: Unremarkable ventricular size and morphology for the patient's age. CEREBRUM: No apparent mass or mass effect. No acute intracranial hemorrhage or abnormal extra-axial fluid collections. No CT evidence to suggest acute large vascular territorial ischemia. CEREBELLUM: Unremarkable for the patient's age. BRAINSTEM: Normal. SKULL: Normal. 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 CONCLUSION:No acute intracranial abnormality. Dictated by: Keegan Alexander M.D. on 01/07/2021 at 01:51 PM
[2021-01-07 14:05] VITALS: BP 142/89
== END 2021-01-07 14:05 | disposition home or self-care (01) ==
LOC: ER 12:42
DX: F20.9 Schizophrenia, unspecified (principal); J45.909 Unspecified asthma, uncomplicated; Z88.6 Allergy status to analgesic agent; Z88.8 Allergy status to other drugs, medicaments and biological substances
CPT/HCPCS: 36415; 70450; 80053; 84484; 85025; 93005; 99285

== ENCOUNTER → 2021-09-05 | Outpatient (CLI) | payer MEDICARE, MEDICAID ==
--- NOTE | 2021-09-05 19:28 | DIREP ---
PROCEDURE:XRAY SPINE LUMBAR 2-3 VWS COMPARISON:[facility], , XRAY SPINE LUMBAR MIN 4 VWS, 07/24/2018, 10:36 AM. INDICATIONS:M54.59 CHRONIC LOW BACK PAIN FINDINGS: ALIGNMENT:No significant scoliosis. Normal lumbar lordosis. Vertebral body alignment is maintained. VERTEBRAE:Apparent partial sacralization of L5. No compression deformity or acute fracture. DISK SPACES:Mild disc space narrowing at L4-L5. SPONDYLOLISTHESIS:None. SACROILIAC JOINTS:Unremarkable. CONCLUSION: 1. No acute osseous abnormality or vertebral body malalignment. 2. Partial sacralization of L5 with rudimentary disc space. Mild disc space narrowing at L4-L5. Dictated by: Keegan Alexander M.D. On 09/05/2021 at 07:25 PM
== END | disposition home or self-care (01) ==
LOC: RAD 11:02
PROVIDERS: ATTEND Pain Medicine Pain Medicine
DX: M48.061 Spinal stenosis, lumbar region without neurogenic claudication (principal)
CPT/HCPCS: 72100